=== PATIENT | female | born 1995 | race Caucasian/White ===

== ENCOUNTER 2017-05-30 14:00 | Emergency (ER) | payer OTHER ==
[~2017-05-30] VITALS: Ht 167.6 cm; Wt 68.9 kg
[2017-05-30 14:04] VITALS: TEMP 36.6; Ht 167.6 cm; Wt 68.9 kg
[2017-05-30] MEDS ORDERED: VYV30 PO (15:13)
[2017-05-30] MEDS ORDERED: BCPILLS PO (15:13)
[2017-05-30 15:35] VITALS: O2SAT 100
--- NOTE | 2017-05-30 15:40 | EMERGENCY ROOM VISIT NOTE ---
History First contact with patient: 15:12 Chief Complaint: CHEST PAIN Stated Complaint: CHEST PAIN, NUMBNESS IN L ARM/JAW/NECK, NASUEA Nursing Triage Summary: Pt presents with substernal cp that began yesterday and left side of body is numb and tingling for the past 12 hrs. Denies SOB. Pt states, "I feel like I don't get as deep of breaths as I should." Denies lightheadedness. Denies hx of similar sx. History of Present Illness The patient is a 22 year old female who presents to the Emergency Room with complaints of chest pain started at approximately 11 PM last night. She states her chest pain has been intermittent, substernal, sharp and stabbing, currently 0/10. She states her chest pain seemed to spread up to her left shoulder blade area, into her left arm and jaw, which she describes as a constant discomfort since last night. She states she has also had some intermittent feelings of numbness and tingling in the left side of her body. She denies any shortness of breath, lightheadedness or syncope, nausea or vomiting, sweating, abdominal pain, diarrhea or constipation, dysuria or urinary frequency, or rash. She states she used to take control pill, but she ran out a month ago and has not been taking it since. She also states she ran out of her Vyvanse a month ago. She has been studying for an exam on EKGs, yesterday she borrowed one of her friend's 30 mg Adderall pills which she took at 5:30 PM. She states she has done this before with no problem in the past. She states she has been feeling very anxious about her exam. Review of Systems A complete 10 point review of systems was reviewed with the patient with pertinent positives and negatives as per history of present illness. All else were negative. Past Medical/Surgical History ADHD Social History Smoking Status: Never Smoker Current/Historical Medications Scheduled Control Pills ( Control Pills), 1 TAB PO DAILY Lisdexamfetamine Dimesylate (Vyvanse), 30 MG PO DAILY Allergies No known allergies Physical Exam Vital Signs Date Time Temp Pulse Resp B/P (MAP) Pulse Ox O2 Delivery O2 Flow Rate FiO2 05/30/17 16:57 71 16 123/68 100 Room Air 05/30/17 15:36 61 05/30/17 15:35 100 Room Air 05/30/17 15:35 100 Room Air 05/30/17 15:34 65 16 138/89 100 Room Air 05/30/17 14:10 157/81 05/30/17 14:04 36.6 82 18 174/137 98 Room Air Physical Exam CONSTITUTIONAL: No acute distress. Well hydrated, well appearing and well nourished. Alert and oriented X 4 with normal affect. HEENT: Normocephalic, atraumatic. Pupils equal, round and reactive to light, EOMI. TMs normal. Pharynx normal. Moist mucous membranes. NECK: Supple, full active range of motion without discomfort. No midline tenderness of the spine. RESPIRATORY: Clear to auscultation bilaterally with no wheezing, crackles, rhonchi or stridor. Equal expansion bilaterally. CARDIOVASCULAR: Regular rate and rhythm with no murmurs, rubs or gallops. Normal peripheral perfusion. No edema. GASTROINTESTINAL: There is mild epigastric tenderness to palpation, which reproduces the patient's complaint of chest pain. The abdomen is otherwise soft , nontender, nondistended. No rebound tenderness or guarding. No palpable masses or HSM. Bowel sounds present in all quadrants. BACK: There is no midline tenderness of the thoracic or lumbar spine. There is mild musculoskeletal pain to palpation of the left shoulder blade area. MUSCULOSKELETAL: Full range of motion of all joints without discomfort. INTEGUMENTARY: No rash or other significant dermatologic conditions noted. NEUROLOGIC: Cranial nerves II-XII grossly intact. No focal neurologic deficits noted. Normal strength and sensation in all 4 extremities, normal gait, normal speech, normal coordination. Medical Decision & Procedures ER Provider Diagnostic Interpretation: CHEST 2 VIEWS ROUTINE CLINICAL HISTORY: Chest pain. COMPARISON STUDY: No previous studies for comparison. FINDINGS: Lung volume are normal. No pneumothorax or pleural effusion is present.. Pulmonary vascularity is normal. There is no consolidation. Cardiomediastinal silhouette is normal. IMPRESSION: No acute cardiopulmonary findings. Laboratory Results 05/30/17 15:25 Red Blood Count 4.69, Mean Corpuscular Volume 93.0, Mean Corpuscular Hemoglobin 31.3, Mean Corpuscular Hemoglobin Concent 33.7, Mean Platelet Volume 10.5, Neutrophils (%) (Auto) 58.1, Lymphocytes (%) (Auto) 30.9, Monocytes (%) (Auto) 8.8, Eosinophils (%) (Auto) 1.8, Basophils (%) (Auto) 0.2, Neutrophils # (Auto) 3.62, Lymphocytes # (Auto) 1.92, Monocytes # (Auto) 0.55, Eosinophils # (Auto) 0.11, Basophils # (Auto) 0.01 05/30/17 15:25 Test 05/30/17 15:25 05/30/17 15:30 White Blood Count 6.22 K/uL (4.8-10.8) Red Blood Count 4.69 M/uL (4.2-5.4) Hemoglobin 14.7 g/dL (12.0-16.0) Hematocrit 43.6 % (37-47) Mean Corpuscular Volume 93.0 fL (80-100) Mean Corpuscular Hemoglobin 31.3 pg (25-34) Mean Corpuscular Hemoglobin Concent 33.7 g/dl (32-36) Platelet Count 287 K/uL (130-400) Mean Platelet Volume 10.5 fL (7.4-10.4) Neutrophils (%) (Auto) 58.1 % Lymphocytes (%) (Auto) 30.9 % Monocytes (%) (Auto) 8.8 % Eosinophils (%) (Auto) 1.8 % Basophils (%) (Auto) 0.2 % Neutrophils # (Auto) 3.62 K/uL (1.4-6.5) Lymphocytes # (Auto) 1.92 K/uL (1.2-3.4) Monocytes # (Auto) 0.55 K/uL (0.11-0.59) Eosinophils # (Auto) 0.11 K/uL (0-0.5) Basophils # (Auto) 0.01 K/uL (0-0.2) RDW Standard Deviation 41.8 fL (36.4-46.3) RDW Coefficient of Variation 12.4 % (11.5-14.5) Immature Granulocyte % (Auto) 0.2 % Immature Granulocyte # (Auto) 0.01 K/uL (0.00-0.02) D-Dimer < 190 ug/L FEU (0-500) Anion Gap 5.0 mmol/L (3-11) Est Creatinine Clear Calc Drug Dose 101.9 ml/min Estimated GFR () 119.5 Estimated GFR (Non- 103.1 BUN/Creatinine Ratio 10.9 (10-20) Calcium Level 9.7 mg/dl (8.5-10.1) Total Bilirubin 0.3 mg/dl (0.2-1) Direct Bilirubin < 0.1 mg/dl (0-0.2) Aspartate Amino Transf (AST/SGOT) 17 U/L (15-37) Alanine Aminotransferase (ALT/SGPT) 26 U/L (12-78) Alkaline Phosphatase 70 U/L (45-117) Troponin I < 0.015 ng/ml (0-0.045) Total Protein 8.8 gm/dl (6.4-8.2) Albumin 4.4 gm/dl (3.4-5.0) Lipase 166 U/L (73-393) Urine Color YELLOW Urine Appearance CLOUDY (CLEAR) Urine pH >= 9.0 (4.5-7.5) Urine Specific [place] 1.012 (1.000-1.030) Urine Protein NEG (NEG) Urine Glucose (UA) NEG (NEG) Urine Ketones NEG (NEG) Urine Occult Blood TRACE (NEG) Urine Nitrite NEG (NEG) Urine Bilirubin NEG (NEG) Urine Urobilinogen NEG (NEG) Urine Leukocyte Esterase NEG (NEG) Urine WBC (Auto) 0 /hpf (0-5) Urine RBC (Auto) 0-4 /hpf (0-4) Urine Hyaline Casts (Auto) 0 /lpf (0-5) Urine Epithelial Cells (Auto) 5-10 /lpf (0-5) Urine Bacteria (Auto) NEG (NEG) Urine Test NEG (NEG) Medical Decision CC: Patient presenting with complaint of chest pain Interpretation of Labs: No leukocytosis, no anemia, no significant electrolyte abnormalities, normal liver enzymes and lipase. Troponin negative. D-dimer negative. UA negative, negative urine . Differential Diagnosis: Includes, but not limited to acute coronary syndrome, pulmonary embolism, pneumothorax, pericarditis, anxiety, musculoskeletal pain, GERD, costochondritis, pneumonia, among others. Medication Reconciliation: I attest that I have personally reviewed the patient' s current medication list. Vital signs review: I reviewed the patient's vital signs and interpret them as follows: T: Afebrile; BP: Hypertensive; HR: Within normal limits; RR: Within normal limits; Pulse Ox: Within normal limits and room air. Blood pressure screening: The patient was found to have an elevated blood pressure, this resolved on subsequent checks, felt to be situational. Summary: Patient was evaluated at bedside, history and physical exam performed. Patient is alert and oriented, no acute distress, resting comfortably in the stretcher. She is studying notes for an exam. She denies any chest pain at this time. She reports a constant discomfort in her left upper shoulder radiating into her left arm that she rates as 6/10. She does have some pain in the left shoulder blade and arm with movement and using the arm as well. No numbness or weakness in the arm. Heart and lung sounds are normal. Neurologic exam is intact with no focal findings. EKG reviewed at bedside was normal sinus rhythm, no acute ischemic changes. Patient is low risk for PE by well's criteria, I will perform d-dimer. Orders were placed at bedside for labs including troponin and d-dimer, UA and urine , chest x-ray. Patient declined anything for pain at this time. Patient discussed with Dr. Muñiz, who agrees with my assessment and plan. Labs reviewed as above, no acute abnormalities. Troponin and d-dimer are negative. Chest x-ray unremarkable. Patient reassessed multiple times throughout ED stay, patient continues to have improved pain, and she appears much more calm. Her hypertension has resolved. She still has mild discomfort in her left shoulder and arm, but continues to deny any return of chest pain. I suspect her shoulder and arm pain are musculoskeletal, and I gave her some therapies to try for her discomfort, as well as [id number] medications to take. Patient was updated on all results and plan for discharge home. She was encouraged to follow closely with [facility] or PCP for further management if her symptoms continue. She was also given strict return precautions should her symptoms worsen, she verbalized understanding. Patient was discharged home in stable condition and ambulatory. Head Trauma GCS Score: 15 Medication Reconcilliation Current Medication List: was personally reviewed by me Blood Pressure Screening Patient's blood pressure: Elevated blood pressure Impression Primary Impression: Non-cardiac chest pain Departure Information Dispostion Home / Self-Care Condition GOOD Referrals No Doctor, Assigned (PCP) [facility] Patient Instructions ED Chest Pain NonCardiac, My [facility] Additional Instructions You have been treated in the Emergency Department your chest pain. Laboratory results and imaging studies have ruled out any emergent causes for your chest pain which would warrant admission or surgery. For pain control, you can use the following opir-diq-hfkwxma medicines (if >12 yo): - Regular strength (325mg/tab) Tylenol (acetaminophen) 2 tabs every 4-6 hours as needed. Do not exceed 10 tablets in a 24 hour period. Avoid taking more than 3000 mg of Tylenol per day. This includes any other sources of acetaminophen you may take on a regular basis. - Regular strength (200 mg/tab) Advil (ibuprofen) 1-2 tabs every 4-6 hours as needed. Do not exceed a dose of 2400 mg per day. Drink plenty of fluids to stay well hydrated. As with any trip to the Emergency Department, you should follow-up with your Primary Care Provider or at [facility] in the next few days if your symptoms persist. Return to the emergency department if your symptoms persist despite treatment plan outlined above or if you develop worsening chest pain, shortness of breath , fevers/chills, vomiting or coughing up blood, severe dizziness or passing out , or any other concerns.
[2017-05-30 15:55] LABS: BASO % 0.2 %; BASO ABS # 0.01 K/uL (0-0.2); COMPLETE YES; EOS % 1.8 %; HEMATOCRIT 43.6 % (37-47); IG% 0.2 %; LYMPH % 30.9 %; LYMPH ABS # 1.92 K/uL (1.2-3.4); MEAN CORPUSCULAR HEMOGLOBIN 31.3 pg (25-34); MEAN CORPUSCULAR HGB CONC 33.7 g/dl (32-36); MEAN PLATELET VOLUME 10.5 fL (7.4-10.4); MONO % 8.8 %; NEUT % 58.1 %; PLATELET COUNT 287 K/uL (130-400); RED BLOOD COUNT 4.69 M/uL (4.2-5.4); WHITE BLOOD COUNT 6.22 K/uL (4.8-10.8)
--- NOTE | 2017-05-30 16:05 | DIAGNOSTIC IMAGING REPORT ---
CHEST 2 VIEWS ROUTINE CLINICAL HISTORY: Chest pain. COMPARISON STUDY: No previous studies for comparison. FINDINGS: Lung volume are normal. No pneumothorax or pleural effusion is present.. Pulmonary vascularity is normal. There is no consolidation. Cardiomediastinal silhouette is normal. IMPRESSION: No acute cardiopulmonary findings. Electronically signed by: Keith Joseph M.D. 05/30/2017 4:04 PM Dictated Date/Time: 05/30/2017 4:03 PM
[2017-05-30 16:16] LABS: ALT/SGPT 26 U/L (12-78); AST/SGOT 17 U/L (15-37); BLOOD UREA NITROGEN 9 mg/dl (7-18); BUN/CREATININE RATIO 10.9 (10-20); CALCIUM 9.7 mg/dl (8.5-10.1); CARBON DIOXIDE 30 mmol/L (21-32); CHLORIDE 102 mmol/L (98-107); CREATININE 0.81 mg/dl (0.60-1.20); GLUCOSE 82 mg/dl (70-99); POTASSIUM 3.8 mmol/L (3.5-5.1); SODIUM 137 mmol/L (136-145)
[2017-05-30 16:21] LABS: URINE APPEARANCE CLOUDY (CLEAR); URINE BILIRUBIN NEG (NEG); URINE COLOR YELLOW; URINE NITRITE NEG (NEG); URINE PH >= 9.0 (4.5-7.5); URINE SPECIFIC GRAVITY 1.012 (1.000-1.030); UROBILINOGEN NEG (NEG)
[2017-05-30 16:24] LABS: MANUAL MICROSCOPIC REQUIRED? NO; REVIEW REQ? NO
[2017-05-30 16:26] LABS: ALKALINE PHOSPHATASE 70 U/L (45-117)
[2017-05-30 16:57] VITALS: BP 123/68; PULSE 71; O2SAT 100
== END 2017-05-30 17:25 | disposition home or self-care (01) ==
LOC: C.EDB 14:02 → C.EDC 17:25
DX: R07.9 Chest pain, unspecified (principal); F90.9 Attention-deficit hyperactivity disorder, unspecified type; Z79.899 Other long term (current) drug therapy

== ENCOUNTER 2017-10-29 02:11 | Emergency (ER) | payer SELFPAY ==
[~2017-10-29] VITALS: Ht 165.1 cm; Wt 74.7 kg
[~2017-10-29 02:11] MED LIST: BCPILLS PO; VYV30 PO
[2017-10-29 02:15] VITALS: TEMP 36.7; Ht 165.1 cm; Wt 74.7 kg
[2017-10-29] MEDS ORDERED: DIPHTHERIA/TETANUS/PERTUSSIS 0.5 ML SYR/VIAL IM. ONE (02:45)
[2017-10-29] MEDS ORDERED: CIPROFLOXACIN 500 MG TAB PO STA (02:49)
[2017-10-29 03:01] VITALS: BP 121/69; PULSE 73; O2SAT 97
--- NOTE | 2017-10-29 03:05 | EMERGENCY ROOM VISIT NOTE ---
ED Visit Note First contact with patient: 02:20 CHIEF COMPLAINT: Puncture wound of foot HISTORY OF PRESENT ILLNESS: This 22-year-old patient presents to the emergency department after they stepped on a with friends puncturing the bottom of the right foot. The nail did go through their shoe. The area is painful and the patient doesn't think there is anything in the wound. The patient's tetanus shot is not up-to-date. The patient rates the pain as throbbing and 4/10. The patient has done nothing to clean the foot. The patient is able to walk. REVIEW OF SYSTEMS: A 6 system review of systems was completed with positives and pertinent negatives listed in the HPI. ALLERGIES: None MEDICATIONS: Reviewed PMH: ADHD SOCIAL HISTORY: No drug use PHYSICAL EXAM: Vital Signs: Reviewed Nurse's notes, vital signs stable. GENERAL : Pleasant female, in no acute distress, well-developed, well-nourished. SKIN: There is a small puncture wound on the plantar aspect of the right foot. no foreign material is seen in the wound. The epidermis was lifted off the puncture site and the base of the wound inspected. no foreign material could be seen there. The area was particularly tender and swollen. Capillary refill is in two seconds. MUSCULOSKELETAL: The patient has full range of motion of the toes and ankle of the right lower extremity. Peripheral pulses 2+ . EMERGENCY DEPARTMENT COURSE: I examined the patient. Foot x-ray shows no foreign material fracture per my interpretation. Using clean technique the wound was cleaned. The epidermis was lifted off of the puncture site with forceps and the wound was further explored. The wound was copiously irrigated with sterile saline under pressure. The area was then cleaned with sterile saline and dressed with bacitracin and a bandage. Patient stepped on a dirty nail through her tennis shoe. There is pain swelling at the site. She was started on antibiotics. The patient was given a tetanus booster. The patient was discharged home in stable condition. DIAGNOSIS: Puncture wound of the foot, right DISCHARGE INSTRUCTIONS: DO NOT drive, drink alcohol, operate machinery, or perform dangerous activities today. You were given medications in the ER that can affect your ability to safely function or operate a vehicle. Cipro 500mg: Take one pill twice daily for 7 days. All antibiotics can cause diarrhea. If this occurs and you feel worse or it does not resolve in 1-2 days follow up with your doctor or return to the Emergency Department as this could be signs of serious underlying problems. If you experience any pain in your tendons or any tendon injury return to the ER for re-evaluation. Any medication can cause an allergic reaction, stop the pills immediately and return to the ER for rash, hives, breathing difficulties, or swelling. Acetaminophen(Tylenol) may be used for fever or pain. Use 1000mg every six hours as needed. Avoid using more than 3000mg in a 24 hour period. AND/OR Ibuprofen(Motrin, Advil) may be used for fever or pain. Use 600mg every six hours as needed. Take with food. Avoid using more than 2400mg in a 24 hour period. Do not use 2400mg per day for more than three consecutive days without physician direction. Prolonged inappropriate use can lead to stomach upset or ulcers. Continue current medications. Return to the ER for fevers, redness, severe pain, body aches, or as needed. Follow-up with family care in 2-3 days. Current/Historical Medications No Active Prescriptions or Reported Meds Allergies Coded Allergies: No Known Allergies (Unverified , 05/30/17) Vital Signs Date Time Temp Pulse Resp B/P (MAP) Pulse Ox O2 Delivery O2 Flow Rate FiO2 10/29/17 02:15 36.7 95 17 116/80 97 Room Air Medications Administered Medications (Trade) Dose Ordered Sig/Aisha Route Start Time Stop Time Status Last Admin Dose Admin Diphtheria/ Pertussis/Tetanus Vacc (Adacel Inj) 0.5 ml ONCE ONCE IM. 10/29/17 02:45 10/29/17 02:46 10/29/17 02:38 0.5 ML Departure Information Prescriptions No Active Prescriptions or Reported Meds Referrals No Doctor, Assigned (PCP) Patient Instructions [facility]
[2017-10-29] MEDS ORDERED: CIPR1TAB10 PO (03:06)
--- NOTE | 2017-10-29 08:52 | DIAGNOSTIC IMAGING REPORT ---
R FOOT MIN 3 VIEWS ROUTINE CLINICAL HISTORY: 22 years-old Female presenting with STEPPED ON DIRTY NAIL, ? FB. TECHNIQUE: Frontal, oblique, and lateral views of the right foot were obtained. COMPARISON: None. FINDINGS: No radiopaque foreign body. No acute fracture or malalignment. No advanced degenerative change. No radiographic soft tissue abnormality. IMPRESSION: 1. No acute osseous injury. 2. No retained radiopaque foreign body. Electronically signed by: Nathaniel Monteiro M.D. 10/29/2017 8:50 AM Dictated Date/Time: 10/29/2017 8:43 AM
== END 2017-10-29 03:16 | disposition home or self-care (01) ==
LOC: C.EDB 02:12
DX: S91.331A Puncture wound without foreign body, right foot, initial encounter (principal); W45.0XXA Nail entering through skin, initial encounter; W22.8XXA Striking against or struck by other objects, initial encounter